=== PATIENT | male | born 1960 | race Caucasian/White ===

== ENCOUNTER 2022-01-21 13:50 | Emergency (ER) | payer OTHER, SELFPAY ==
[2022-01-21] VITALS (9 sets, daily range): BP systolic 140–223; BP diastolic 111–117; PULSE 51–66; RESP 10–32; TEMP 34.2–36.1; O2SAT 100; BMI 24.0
--- NOTE | ~2022-01-21 | CT_ITS ---
EXAMINATION: CT CERVICAL SPINE WITHOUT CONTRAST CLINICAL INFORMATION: [facility] [place] COMPARISON: None. TECHNIQUE: Contiguous helical images of the cervical spine were obtained without IV contrast. Multiplanar reconstructions were performed. This CT examination was performed using dose optimization techniques as appropriate, variously including the following: *Automated exposure control *Adjustment of mA and/or kV according to patient size (this includes techniques or standardized protocols for targeted exams where dose is matched to indication/reason for exam; i.e. extremities or head) *Use of iterative reconstruction technique DLP: 372 mGy-cm FINDINGS: Alignment:Normal. No subluxation. Vertebra:No acute fracture. No prevertebral soft tissue swelling. Degenerative disc disease:No significant. Preserved intervertebral disc heights. Left-sided facet arthrosis at C6-C7 bilaterally at C7-T1. Small anterior intervertebral disc calcification at C5-C6. Other findings:Extensive subarachnoid hemorrhage noted, better assessed on dedicated head CT. Incompletely imaged endotracheal and enteric tubes. Patchy airspace opacities in the visualized lung apices. Thyroid gland is unremarkable. No cervical lymphadenopathy. CT/CT cervical spine wo IV con IMPRESSION: 1.No traumatic subluxation or acute cervical spine fracture.
--- NOTE | ~2022-01-21 | CT_ITS ---
EXAMINATION: CT HEAD WITHOUT CONTRAST CLINICAL INFORMATION: Mental status change. Unresponsive. Intubated. COMPARISON: None TECHNIQUE: Contiguous axial imaging was performed from the skull base to vertex without intravenous administration of contrast. This CT examination was performed using dose optimization techniques as appropriate, variously including the following: *Automated exposure control *Adjustment of mA and/or kV according to patient size (this includes techniques or standardized protocols for targeted exams where dose is matched to indication/reason for exam; i.e. extremities or head) *Use of iterative reconstruction technique DLP: 646 mGy-cm FINDINGS: There is a large amount of subarachnoid hemorrhage. This is seen diffusely throughout the head. Largest area of hemorrhage is seen in between the base of the frontal lobes. Possible ruptured a common aneurysm or ALYSSIA aneurysm should be considered. There is a small amount of hemorrhage in the posterior horn of the left lateral ventricle and the fourth ventricle. The ventricles do not appear dilated. Riddle-white matter differentiation is normal. No mass, mass effect or infarct or is seen. No evidence of herniation is seen. Review of bone windows is normal. No skull fracture is seen. There is minimal membranous soft tissue thickening seen in the bilateral maxillary sinuses. CT/CT head/brain wo IV con IMPRESSION: Large amount of subarachnoid hemorrhage. Findings were communicated to Dr. Woodard in person on 01/21/2022 at 3:45 PM.
--- NOTE | ~2022-01-21 | CT_ITS ---
EXAMINATION: CT CHEST, ABDOMEN, AND PELVIS WITHOUT CONTRAST CLINICAL INFORMATION: Fall. Rule out trauma. COMPARISON: No prior chest CT. CT scan of the abdomen dated April 27, 2007. TECHNIQUE: Multidetector volumetric CT imaging of the chest, abdomen, and pelvis was obtained without oral or intravenous contrast. Axial MIP volume rendering provided. Sagittal and coronal reformatted images were obtained. This CT examination was performed using dose optimization techniques as appropriate, variously including the following: *Automated exposure control *Adjustment of mA and/or kV according to patient size (this includes techniques or standardized protocols for targeted exams where dose is matched to indication/reason for exam; i.e. extremities or head) *Use of iterative reconstruction technique DLP: 2034 mGy-cm FINDINGS: Somewhat limited by motion artifact. LUNGS: Mild bibasilar dependent atelectasis. Question mild, family perihilar, subtle groundglass density as well as possible mild Remberto B lines, equivocal. Tip of endotracheal tube lies within the trachea approximately 4 cm above the seda. MEDIASTINUM: The mediastinum appears unremarkable. PLEURA: There is no pleural effusion. No pleural mass or thickening. AXILLA: No lymphadenopathy by size criteria. LIVER, GALLBLADDER, AND BILIARY TREE: Subcentimeter segment 6/7 hepatic lesion, too small to characterize, statistically most likely to represent a benign simple cyst or hemangioma (image 113, series 16). The liver otherwise appears unremarkable in size, shape, and attenuation. No suspicious focal hepatic lesion or biliary ductal dilatation is appreciated. Unremarkable appearance of the gallbladder. PANCREAS: Unremarkable SPLEEN: Unremarkable ADRENAL GLANDS: Unremarkable KIDNEYS AND URETERS: Ptotic right kidney. Suspect focal right renal cortical scar versus junctional parenchymal defect. The kidneys otherwise appear unremarkable in size, shape, and attenuation. No hydronephrosis, hydroureter, or calculi seen. BLADDER: Harris catheter balloon within urinary bladder, which is collapsed, therefore suboptimally evaluated. Grossly unremarkable. GASTROINTESTINAL TRACT: Tip and sidehole of nasogastric tube within the lumen of the stomach. The small and large bowel appear unremarkable. No diverticulosis. Normal-appearing distal ileum. No evidence of appendicitis. PERITONEAL CAVITY: No intraperitoneal fluid identified. ABDOMINAL WALL: No significant hernia is appreciated. LYMPH NODES: No evidence of adenopathy by size criteria. VASCULAR: Unremarkable. PELVIC VISCERA: Unremarkable OSSEOUS STRUCTURES: Somewhat limited by motion artifact. No acute finding. CT/CT abdomen pelvis wo IV con IMPRESSION: Question very mild or early pulmonary edema, equivocal. No acute traumatic injury identified on these noncontrast CT scans of the chest, abdomen, and pelvis.
--- NOTE | 2022-01-21 14:04 | ED.AMS ---
HPI - Altered Mental Status General Chief Complaint: General Medical Stated Complaint: Unresponsive Time Seen by Provider: 01/21/22 14:03 Source: EMS Mode of arrival: EMS Limitations: altered mental status History of Present Illness HPI narrative: 61-year-old male who presents emergency department for evaluation of altered mental status. Information came from the paramedics and from the patient's son, Medardo. The son states the patient has not been ill in any way. The patient has no past medical history and is very physically active. The patient plays softball and rides his bike to work. The patient works in a chemical factory. Co-worker states that the patient went to the bathroom and then they heard him fall. When they went in the bathroom he was lying on the floor, here but click use having difficulty breathing and was unresponsive. Paramedics reported that the patient had fixed and dilated pupils, they gave him intravenous Narcan with no effect. The patient's respiratory rate was very low and when the patient presented to the emergency department the paramedics were assisting his respirations with a bag-valve mask. The patient's respiratory rate was 4-5 breaths per minute, he was unresponsive with fixed pupils. He did not respond to intranasal Narcan. Given his presentation, his fixed dilated pupils and is low respiratory rate was concerned that he might have an intracranial bleed. Therefore the patient was intubated to protect his airway and to support his respiratory rate. The patient's came to the emergency department and she states that the patient was complaining fatigue with the past 3 days but did not complain of headache or have any other complaints. MD complaint: altered mental status Onset (ago): minute(s) Timing confirmed by: other (Co-worker) Severity: severe Related Data Allergies Allergy/AdvReac Type Severity Reaction Status Date / Time No Known Allergies [NKA] Allergy Mild NOT Unverified 01/03/20 15:51 APPLICABLE Review of Systems Review of Systems: Yes unobtainable due to endotracheal tube PMFSH Past Medical History PMFSH Narrative: Past medical history: None. Past surgical history: None. Social history: The patient is a former smoker and stop smoking 3 years prior. He smoked for 10-15 years. He occasionally drinks alcohol. He occasionally smokes marijuana. The patient lives at home with his son and does have a who does not live with him. Social History Social History Advance Directives: No Advance Directives Information Provided: No Physical Exam ED Vital Signs: Vital Signs - 24 hr 01/21/22 14:26 01/21/22 14:00 01/21/22 15:30 Temperature 96.6 F L Pulse Rate 52 Respiratory Rate 10 L Blood Pressure 148/116 H 223/116 H 142/112 H Pulse Oximetry 100 Oxygen Delivery Method Mechanical Ventilation Fraction of Inspired Oxygen 01/21/22 16:15 01/21/22 16:32 01/21/22 16:35 Temperature 96.9 F 93.6 F L Pulse Rate 53 54 Respiratory Rate 12 10 L Blood Pressure 146/112 H 146/111 H Pulse Oximetry 100 100 Oxygen Delivery Method Mechanical Ventilation Mechanical Ventilation Fraction of Inspired Oxygen 50 01/21/22 16:47 Temperature 94.1 F L Pulse Rate 66 Respiratory Rate 32 H Blood Pressure 150/117 H Pulse Oximetry 100 Oxygen Delivery Method Fraction of Inspired Oxygen BMI result Body Mass Index 24.0 Const Other: Patient is obtain ended, does not respond to painful stimuli, has a very low respiratory rate and for respiratory effort, his pupils are dilated greater than 9 mm and nonreactive to light. [facility] Head: Yes normal to inspection, Yes normocephalic and Yes atraumatic Ears: external ears normal General nose exam: Normal external nose present Face and sinus: Yes normal facial exam Mouth: Normal oral and palatal mucosa present Throat: Yes posterior oropharynx normal Eyes Other: Pupils are fixed and dilated Neck Other: C spine collar in place Neck: Yes normal visual inspection, Yes no lymphadenopathy and Yes trachea midline Chest Chest palpation & inspection: normal inspection of the chest and normal palpation of entire chest wall Resp Other: Low respiratory rate, poor respiratory effort, lungs clear bilaterally Cardio Rate: regular rate Rhythm: regular rhythm Heart sounds: S1 normal heart sound present, S2 normal heart sound present and no murmurs GI Inspection: Yes normal to inspection Palpation (GI): Soft to palpation Auscultation: normal bowel sounds General: Yes no CVA tenderness Back/Spine/Pelvis Back: no CVA tenderness Skin General skin exam: no rashes or lesions noted Neuro Other: Patient is breathing spontaneously but with a low respiratory rate, not responding to painful stimuli Extrem General: Yes normal to inspection Course Course Course Narrative: 61-year-old male who presents emergency department for evaluation of altered mental status. The patient was feeling fatigued over the last several days but did not complain of headache to his family. Patient went to work, he went to bathroom and then coworkers heard him fall in the bathroom. The patient was then found to be unresponsive. Paramedics noted patient's pupils were dilated not reactive. The patient did not respond to IV Narcan. Here in the emergency department he did not respond to intranasal Narcan. The patient had a very low respiratory rate with an elevated blood pressure of 223/163. Patient was given RSI with etomidate 25 mg IV and rocuronium 50 mg IV. The patient was intubated. Given his hypertension was given a bolus propofol 60 mg IV and started propofol drip with improvement of his hypertension. Laboratory evaluation was ordered. CT scan of the head, cervical spine, chest and abdomen were ordered since the patient had an unwitnessed fall and his exam is unreliable since he is obtunded. 1617: Laboratory evaluation: CBC was normal. PT/INR PTT normal. D-dimer elevated 13,000. Potassium low 3.1, CO2 low 21, glucose low 173, AST, ALT elevated 66 and 44. CK elevated 29. High sensitive troponin I elevated 197.7. Urinalysis revealed large amount of blood. Urine microscopic revealed greater than 20 RBCs, 6-10 WBCs, no bacteria seen. U tox positive for marijuana. Alcohol was below detectable limits. COVID-19, influenza were negative. Radiology interpretation: CT scan of the brain without contrast FINDINGS: There is a large amount of subarachnoid hemorrhage. This is seen diffusely throughout the head. Largest area of hemorrhage is seen in between the base of the frontal lobes. Possible ruptured a common aneurysm or ALYSSIA aneurysm should be considered. There is a small amount of hemorrhage in the posterior horn of the left lateral ventricle and the fourth ventricle. The ventricles do not appear dilated. Riddle-white matter differentiation is normal. No mass, mass effect or infarct or is seen. No evidence of herniation is seen. Review of bone windows is normal. No skull fracture is seen. There is minimal membranous soft tissue thickening seen in the bilateral maxillary sinuses. IMPRESSION: Large amount of subarachnoid hemorrhage. Dictated By:Alicia Mccauley MD CT scan of the cervical spine revealed no acute fracture CT scan of the chest abdomen pelvis impression is as follows: Question very mild or early pulmonary edema, equivocal. No acute traumatic injury identified on these noncontrast CT scans of the chest, abdomen, and pelvis. Dictated By:Anthony Castillo Given the large subarachnoid bleed, I will discuss transfer with [facility]. 1718: I did discuss this patient with the emergency department attending at [facility], and she did accept this patient as an ED to ED transfer. The patient will be transferred by ALS ambulance. MDM - Altered Mental Status Lab Data Attestation: I reviewed the patient's lab results. Result diagrams: 01/21/22 14:33 01/21/22 14:33 Labs: Lab Results 01/21/22 01/21/22 01/21/22 Range/Units 14:33 14:33 14:33 WBC 5.4 (4.8-10.8) X10*3/uL RBC 4.48 L (4.60-5.80) X10*6/uL Hgb 13.9 L (14.0-18.0) g/dl Hct 41.8 L (42.0-52.0) % MCV 93.3 (80.0-98.0) fL MCH 31.0 (27.0-33.0) pg MCHC 33.3 (31.0-36.0) g/dl RDW 12.0 (11.0-16.0) % Plt Count 181 (160-400) X10*3/uL MPV 9.4 (9.4-12.4) fL Immature Gran % (Auto) 0.2 (0.0-0.4) % Neut % (Auto) 57.3 (45-73) % Lymph % (Auto) 31.7 (20-40) % [place] % (Auto) 8.2 (2-11) % Eos % (Auto) 1.7 (0-4) % Baso % (Auto) 0.9 (0-2) % Lymph # (Auto) 1.7 (1.2-4.9) X10*3/uL [place] # (Auto) 0.4 (0.1-1.2) X10*3/uL Eos # (Auto) 0.1 (0.0-0.4) X10*3/uL Baso # (Auto) 0.1 (0.0-0.2) X10*3/uL Abs Immat Gran (auto) 0.01 (0.00-0.03) X10*3/uL Absolute Neuts (auto) 3.1 (2.0-8.3) x10*3/uL Absolute Nucleated RBC 0.000 (0.0-0.012) X10*3/uL Nucleated RBC % (auto) 0.0 (0.0-0.2) /100WBC PT 11.8 (10.0-13.1) SEC INR 1.0 (0.9-1.1) APTT 30.6 (26.0-36.4) SEC D-Dimer High Sensitivty 19222 NG/ML Sodium 138 (135-145) mmol/L Potassium 3.1 L (3.3-5.1) mmol/L Chloride 108 (96-108) mmol/L Carbon Dioxide 21 L (22-29) mmol/L Anion Gap 12 (12-20) BUN 15 (9-16) mg/dL Creatinine 0.95 (0.5-1.4) mg/dL Estim Creat Clear Calc 78.2 Estimated GFR > 60 Random Glucose 173 H (60-115) mg/dL Lactic Acid (0.5-2.0) mmol/L Calcium 8.0 L (8.4-10.2) mg/dL Total Bilirubin 0.3 (0.0-1.0) mg/dL AST 66 H (5-37) U/L ALT 44 H (0-40) U/L Alkaline Phosphatase 56 (39-117) U/L Total Creatine Kinase 259 H (38-174) U/L Troponin I High Sens (<3.5-35.0) ng/L Total Protein 6.2 L (6.5-8.0) g/dL Albumin 3.9 (3.5-5.0) g/dL Lipase 22 (8-78) U/L TSH 2.01 (0.32-4.0) uIU/mL Urine Color Urine Appearance Urine pH (5.0-9.0) Ur Specific [place] (1.005-1.025) Urine Protein (Neg-Trace) mg/dL Urine Glucose (UA) (Negative) mg/dL Urine Ketones (Negative) mg/dL Urine Blood (Negative) Urine Nitrite (Negative) Ur Leukocyte Esterase (Negative) Urine RBC (0-2) /HPF Urine WBC (0-5) /HPF Ur Squamous Epith Cells (0-2) /HPF Urine Bacteria (None Seen) Hyaline Casts (0-2) /LPF Urine Opiates Screen (Not Detect) Urine Fentanyl Screen (Not Detect) Ur Barbiturates Screen (Not Detect) Ur Phencyclidine Scrn (Not Detect) Ur Amphetamines Screen (Not Detect) U Benzodiazepines Scrn (Not Detect) Urine Cocaine Screen (Not Detect) U Marijuana (THC) Screen (Not Detect) Ethyl Alcohol < 10 mg/dL COVID-19 (MARTY) (Negative) COVID-19 Clin Com Influenza Type A (CHERELLE) (Negative) Influenza Type B (CHERELLE) (Negative) Influenza A & B Note 01/21/22 01/21/22 01/21/22 Range/Units 14:33 14:33 14:39 WBC (4.8-10.8) X10*3/uL RBC (4.60-5.80) X10*6/uL Hgb (14.0-18.0) g/dl Hct (42.0-52.0) % MCV (80.0-98.0) fL MCH (27.0-33.0) pg MCHC (31.0-36.0) g/dl RDW (11.0-16.0) % Plt Count (160-400) X10*3/uL MPV (9.4-12.4) fL Immature Gran % (Auto) (0.0-0.4) % Neut % (Auto) (45-73) % Lymph % (Auto) (20-40) % [place] % (Auto) (2-11) % Eos % (Auto) (0-4) % Baso % (Auto) (0-2) % Lymph # (Auto) (1.2-4.9) X10*3/uL [place] # (Auto) (0.1-1.2) X10*3/uL Eos # (Auto) (0.0-0.4) X10*3/uL Baso # (Auto) (0.0-0.2) X10*3/uL Abs Immat Gran (auto) (0.00-0.03) X10*3/uL Absolute Neuts (auto) (2.0-8.3) x10*3/uL Absolute Nucleated RBC (0.0-0.012) X10*3/uL Nucleated RBC % (auto) (0.0-0.2) /100WBC PT (10.0-13.1) SEC INR (0.9-1.1) APTT (26.0-36.4) SEC D-Dimer High Sensitivty NG/ML Sodium (135-145) mmol/L Potassium (3.3-5.1) mmol/L Chloride (96-108) mmol/L Carbon Dioxide (22-29) mmol/L Anion Gap (12-20) BUN (9-16) mg/dL Creatinine (0.5-1.4) mg/dL Estim Creat Clear Calc Estimated GFR Random Glucose (60-115) mg/dL Lactic Acid 2.0 (0.5-2.0) mmol/L Calcium (8.4-10.2) mg/dL Total Bilirubin (0.0-1.0) mg/dL AST (5-37) U/L ALT (0-40) U/L Alkaline Phosphatase (39-117) U/L Total Creatine Kinase (38-174) U/L Troponin I High Sens 197.7 H* (<3.5-35.0) ng/L Total Protein (6.5-8.0) g/dL Albumin (3.5-5.0) g/dL Lipase (8-78) U/L TSH (0.32-4.0) uIU/mL Urine Color Urine Appearance Urine pH (5.0-9.0) Ur Specific [place] (1.005-1.025) Urine Protein (Neg-Trace) mg/dL Urine Glucose (UA) (Negative) mg/dL Urine Ketones (Negative) mg/dL Urine Blood (Negative) Urine Nitrite (Negative) Ur Leukocyte Esterase (Negative) Urine RBC (0-2) /HPF Urine WBC (0-5) /HPF Ur Squamous Epith Cells (0-2) /HPF Urine Bacteria (None Seen) Hyaline Casts (0-2) /LPF Urine Opiates Screen (Not Detect) Urine Fentanyl Screen (Not Detect) Ur Barbiturates Screen (Not Detect) Ur Phencyclidine Scrn (Not Detect) Ur Amphetamines Screen (Not Detect) U Benzodiazepines Scrn (Not Detect) Urine Cocaine Screen (Not Detect) U Marijuana (THC) Screen (Not Detect) Ethyl Alcohol mg/dL COVID-19 (MARTY) (Negative) COVID-19 Clin Com Influenza Type A (CHERELLE) Negative (Negative) Influenza Type B (CHERELLE) Negative (Negative) Influenza A & B Note See Note 01/21/22 01/21/22 01/21/22 Range/Units 14:39 14:42 14:42 WBC (4.8-10.8) X10*3/uL RBC (4.60-5.80) X10*6/uL Hgb (14.0-18.0) g/dl Hct (42.0-52.0) % MCV (80.0-98.0) fL MCH (27.0-33.0) pg MCHC (31.0-36.0) g/dl RDW (11.0-16.0) % Plt Count (160-400) X10*3/uL MPV (9.4-12.4) fL Immature Gran % (Auto) (0.0-0.4) % Neut % (Auto) (45-73) % Lymph % (Auto) (20-40) % [place] % (Auto) (2-11) % Eos % (Auto) (0-4) % Baso % (Auto) (0-2) % Lymph # (Auto) (1.2-4.9) X10*3/uL [place] # (Auto) (0.1-1.2) X10*3/uL Eos # (Auto) (0.0-0.4) X10*3/uL Baso # (Auto) (0.0-0.2) X10*3/uL Abs Immat Gran (auto) (0.00-0.03) X10*3/uL Absolute Neuts (auto) (2.0-8.3) x10*3/uL Absolute Nucleated RBC (0.0-0.012) X10*3/uL Nucleated RBC % (auto) (0.0-0.2) /100WBC PT (10.0-13.1) SEC INR (0.9-1.1) APTT (26.0-36.4) SEC D-Dimer High Sensitivty NG/ML Sodium (135-145) mmol/L Potassium (3.3-5.1) mmol/L Chloride (96-108) mmol/L Carbon Dioxide (22-29) mmol/L Anion Gap (12-20) BUN (9-16) mg/dL Creatinine (0.5-1.4) mg/dL Estim Creat Clear Calc Estimated GFR Random Glucose (60-115) mg/dL Lactic Acid (0.5-2.0) mmol/L Calcium (8.4-10.2) mg/dL Total Bilirubin (0.0-1.0) mg/dL AST (5-37) U/L ALT (0-40) U/L Alkaline Phosphatase (39-117) U/L Total Creatine Kinase (38-174) U/L Troponin I High Sens (<3.5-35.0) ng/L Total Protein (6.5-8.0) g/dL Albumin (3.5-5.0) g/dL Lipase (8-78) U/L TSH (0.32-4.0) uIU/mL Urine Color Red A Urine Appearance Turbid Urine pH 7.5 (5.0-9.0) Ur Specific [place] 1.010 (1.005-1.025) Urine Protein >=1000 (4+) H (Neg-Trace) mg/dL Urine Glucose (UA) 100 H (Negative) mg/dL Urine Ketones Negative (Negative) mg/dL Urine Blood Large (3+) H (Negative) Urine Nitrite Negative (Negative) Ur Leukocyte Esterase Small (1+) H (Negative) Urine RBC >20 H (0-2) /HPF Urine WBC 6-10 H (0-5) /HPF Ur Squamous Epith Cells 0-2 (0-2) /HPF Urine Bacteria None Seen (None Seen) Hyaline Casts 0-2 (0-2) /LPF Urine Opiates Screen Not Detected (Not Detect) Urine Fentanyl Screen Not Detected (Not Detect) Ur Barbiturates Screen Not Detected (Not Detect) Ur Phencyclidine Scrn Not Detected (Not Detect) Ur Amphetamines Screen Not Detected (Not Detect) U Benzodiazepines Scrn Not Detected (Not Detect) Urine Cocaine Screen Not Detected (Not Detect) U Marijuana (THC) Screen POSITIVE H (Not Detect) Ethyl Alcohol mg/dL COVID-19 (MARTY) Negative (Negative) COVID-19 Clin Com See Note Influenza Type A (CHERELLE) (Negative) Influenza Type B (CHERELLE) (Negative) Influenza A & B Note ECG Data ECG #1: Attestation: I personally reviewed and interpreted this ECG as follows: Interpretation: 1525: Sinus bradycardia with a rate of 53, prolonged QRS 164 with normal QTC intervals inverted T-waves lead 2, 3, AVF with peaked T-waves V5 through V6, ST segment depression in leads 2, 3 and AVF, no PACs, no PVCs. These findings are consistent with cerebral EKG changes. Procedures Intubation Time out performed: No sedative: Etomidate Mg Given: 25 paralytic: Rocuronium Mg Given: 50 Assist Device Used: fiber optic device (Dixon scope) ET Tube Size: 7 ET Tube Uncuffed: Yes Tube Secured Depth (cm): 23 Tube Secured Location: lips Tube Placement Confirmation: visualized tube passing through cords, equal breath sounds bilaterally and confirmation by capnometry Patient Tolerated Procedure: well Intubation Complications: none Additional Comments: Initial intubation ways with 7.5 endotracheal tube however we were unable to pass this through the cords secondary to tightness of the cords, 2nd attempt, the patient was easily intubated with 7.0 endotracheal tube with only minimal resistance at the level of the cords. This intubation was done by physician medical lab assistant, Cari Montalvo with my assistance . I was present throughout the entire procedure. Critical Care Time Critical Care Time Critical Care Time: Yes Total Critical Care Time: 85 Attestation: Critical Care: The patient was critically ill with a high probability of imminent or life threatening deterioration. I spent greater than 30 minutes of discontinuous time evaluating the patient,delivering critical care at the bedside, discussing and evaluating pertinent data with consultants. Critical care time does not include time spent performing separately billable procedures or teaching. Total time spent performing critical care was 85 minutes. Discharge Plan Discharge Clinical Impression: Subarachnoid hemorrhage, Respiratory failure Fall Qualifiers: Encounter type: initial encounter Qualified Code(s): W19.XXXA - Unspecified fall, initial encounter Patient Disposition: [facility] Transfer Details: [facility] ED to ED transfer
--- NOTE | 2022-01-21 14:05 | ECG_ITS ---
Test Reason : AMS Blood Pressure : / mmHG Vent. Rate : 053 BPM Atrial Rate : 000 BPM P-R Int : 000 ms QRS Dur : 164 ms QT Int : 488 ms P-R-T Axes : 000 104 -37 degrees QTc Int : 457 ms Wide QRS rhythm Rightward axis Non-specific intra-ventricular conduction block Abnormal ECG When compared with ECG of 27-APR-2007 13:18, Wide QRS rhythm has replaced Sinus rhythm Referred By: Rahul Priest Electronically Signed By:MARCELO FORD
[2022-01-21 14:41] LABS: MANUAL DIFF FLAG NO
[2022-01-21 14:42] LABS: Basophils Absolute Auto 0.1 X10*3/uL (0.0-0.2); Basophils Percent Auto 0.9 % (0-2); Eosinophils Absolute Auto 0.1 X10*3/uL (0.0-0.4); Eosinophils Percent Auto 1.7 % (0-4); Hematocrit 41.8 % (42.0-52.0); Hemoglobin 13.9 g/dl (14.0-18.0); Imm Gran Abs Auto 0.01 X10*3/uL (0.00-0.03); Imm Gran Pct Auto 0.2 % (0.0-0.4); Lymphocytes Absolute Auto 1.7 X10*3/uL (1.2-4.9); Lymphocytes Percent Auto 31.7 % (20-40); Mean Corpuscular HGB Conc 33.3 g/dl (31.0-36.0); Mean Corpuscular Volume 93.3 fL (80.0-98.0); Mean Platelet Volume 9.4 fL (9.4-12.4); Monocytes Absolute Auto 0.4 X10*3/uL (0.1-1.2); Monocytes Percent Auto 8.2 % (2-11); Neutrophils Absolute Auto 3.1 x10*3/uL (2.0-8.3); Neutrophils Percent Auto 57.3 % (45-73); Platelet Count 181 X10*3/uL (160-400); Red Blood Count 4.48 X10*6/uL (4.60-5.80); White Blood Count 5.4 X10*3/uL (4.8-10.8)
[2022-01-21] MEDS: Rocuronium Bromide 50 MG/5 ML VIAL 40 MG IVPUSH (14:42)
[2022-01-21] MEDS: Etomidate 20 MG/10 ML VIAL IVPUSH (14:42)
[2022-01-21] MEDS: propofoL 1,000 MG/100 ML VIAL 12.55 MG IVCONT (14:43)
[2022-01-21] MEDS: propofoL 200 MG/20 ML VIAL 60 MG IVPUSH (14:44)
[2022-01-21] MEDS: 0.9 % Sodium Chloride 1,000 ML 999 ML IV (14:45)
--- NOTE | 2022-01-21 14:48 | PC.NURSE ---
pupils unresponsive patient being bagged by EMS . RT at bedside 1357 decision to intubate by DR. York to intubate made 1359 20mg etomadate IVP . 40 mg PEDRO IVP 1400 7 1/2 at 24 for tube placement . 1405 OG placed . 1405 poropfol bolus given 6ml and drip given .
[2022-01-21 14:50] LABS: Prothrombin Time 11.8 SEC (10.0-13.1)
[2022-01-21 14:52] LABS: Partial Thromboplastin Time 30.6 SEC (26.0-36.4)
[2022-01-21 14:55] LABS: Appearance Urine Turbid; Color Urine Red; Glucose Urine UA 100 mg/dL (Negative); Leukocyte Esterase Urine Small (1+) (Negative); Nitrite Urine Negative (Negative); PH 7.5 (5.0-9.0); UMIC TRIGGER UACC YES; Urine Blood Large (3+) (Negative); Urine Ketones Negative (Negative); Urine Protein >=1000 (4+) mg/dL (Neg-Trace)
[2022-01-21 14:59] LABS: D Dimer High Sensitivity 13000 NG/ML
[2022-01-21 14:59] LABS: Bacteria Urine None Seen (None Seen); Hyaline Casts Urine 0-2 /LPF (0-2); RBC Urine >20 /HPF (0-2); Squamous Epithelial Cell Urine 0-2 /HPF (0-2); UACC Culture Trigger YES
[2022-01-21 15:05] LABS: COVID-19 Test Negative (Negative); IDNOW Serial# 16C4AD1C; IDNOW Serial# 9DB6401D; Influenza A Negative (Negative); Influenza B2 Negative (Negative)
[2022-01-21 15:07] LABS: Amphetamine Screen Urine Not Detected (Not Detect); Barbiturates, Urine Not Detected (Not Detect); Benzodiazepines Screen Urine Not Detected (Not Detect); Cannabinoid Screen Urine POSITIVE (Not Detect); Cocaine Screen Urine Not Detected (Not Detect); Fentanyl, urine Not Detected (Not Detect); Opiate Screen Urine Not Detected (Not Detect); Phencyclidine Screen Urine Not Detected (Not Detect)
[2022-01-21 15:08] LABS: Alanine Aminotransferase 44 U/L (0-40); Albumin Level 3.9 g/dL (3.5-5.0); Alkaline Phosphatase 56 U/L (39-117); Anion Gap 12 (12-20); Aspartate Amino Transferase 66 U/L (5-37); Bilirubin Total 0.3 mg/dL (0.0-1.0); Blood Urea Nitrogen 15 mg/dL (9-16); Carbon Dioxide 21 mmol/L (22-29); Chloride 108 mmol/L (96-108); Creatinine Clr Calc Pharmacy 78.2; Estimated Glomerular Filt Rate > 60; Ethanol < 10 mg/dL; Glucose Random 173 mg/dL (60-115); Lipase 22 U/L (8-78); Potassium 3.1 mmol/L (3.3-5.1); Sodium 138 mmol/L (135-145); Total Protein 6.2 g/dL (6.5-8.0)
[2022-01-21 15:13] LABS: Troponin-I High Sensitivity 197.7 ng/L (<3.5-35.0)
[2022-01-21 15:27] LABS: TSH reflex Free T4 2.01 uIU/mL (0.32-4.0)
--- NOTE | 2022-01-21 15:35 | PC.NURSE ---
patient to CT with RT and this RN . suctioned for large amount of clear oral secretions . patient pupils still unreactive . EKG getting done . provider to read . family will be at bedside.
--- NOTE | 2022-01-21 16:38 | PC.NURSE ---
at bedside Dr. Veronica given update on patients condition and need for transfer to [facility] . [facility] contacted am waiting for call back . patient and family aware of plan of care .
--- NOTE | 2022-01-21 18:26 | PC.NURSE ---
Report given to EMS for transport to [facility] . RT at bedside patient put on EMS ventilation per 20 minutes as protocol . Family aware of plan of care .
--- NOTE | 2022-01-21 18:34 | PC.NURSE ---
Report given to Dillon WANG at [facility] patient on transport to ED .
--- NOTE | 2022-01-21 18:56 | PC.NURSE ---
provider asked pt to be sent to [facility]. pt got accepted to [facility] ed to ed transfer. [facility] [place] was contacted and sent an ALS right away.
[2022-01-22 09:31] LABS: Glucose, Whole Blood 176 mg/dL (60-115)
== END 2022-01-21 18:58 | disposition short-term general hospital (02) ==
PROVIDERS: Emergency Provider Emergency Medicine Emergency Medical Services; PCP Internal Medicine
DX: S06.6X9A Traumatic subarachnoid hemorrhage with loss of consciousness of unspecified duration, initial encounter (principal); W17.89XA Other fall from one level to another, initial encounter; J96.90 Respiratory failure, unspecified, unspecified whether with hypoxia or hypercapnia; R40.4 Transient alteration of awareness; Z87.891 Personal history of nicotine dependence; F12.90 Cannabis use, unspecified, uncomplicated; Y93.89 Activity, other specified; Y92.59 Other trade areas as the place of occurrence of the external cause; Y99.0 Civilian activity done for income or pay; Z20.822 Contact with and (suspected) exposure to COVID-19
CPT/HCPCS: 31500; 70450; 71250; 72125; 74176; 80053; 80307; 81001; 82077; 82550; 82947; 83605; 83690; 84443; 84484; 85025; 85379; 85610; 85730; 87040; 87086; 87502; 87635; 93005; 94002; 96361; 96374; 96375; 99285